=== PATIENT | male | born 1990 | race Caucasian/White ===

== ENCOUNTER 2018-01-25 21:50 | Emergency (ER) | payer OTHER ==
[~2018-01-25] VITALS: Ht 208.3 cm; Wt 99.8 kg
[~2018-01-25 21:50] MED LIST: ACETAMINOPHEN-1 EAC1 PO; IBUPROFEN 800800 M1 PO; NOHOMEMEDICATIONS; SILVADENE20 GM TP
[2018-01-25] MEDS ORDERED: NORCO 5-325 TA1 EAC1 PO (22:50)
[2018-01-25 23:17] VITALS: BP 130/80
== END 2018-01-25 23:18 | disposition home or self-care (01) ==
LOC: M.ERS 21:50
DX: S62.324A Displaced fracture of shaft of fourth metacarpal bone, right hand, initial encounter for closed fracture (principal); F17.210 Nicotine dependence, cigarettes, uncomplicated; W18.39XA Other fall on same level, initial encounter; Y93.89 Activity, other specified; Y92.89 Other specified places as the place of occurrence of the external cause; Y99.8 Other external cause status

== ENCOUNTER 2018-02-18 03:16 | Emergency (ER) | payer OTHER ==
[~2018-02-18] VITALS: Ht 195.6 cm; Wt 99.8 kg
[~2018-02-18 03:16] MED LIST changes: +NORCO 5-325 TA1 EAC1 PO
[2018-02-18] MEDS ORDERED: XANAX1 MG PO (03:28)
[2018-02-18] MEDS ORDERED: BUPRENORPHINE HC8 MG (03:29)
[2018-02-18] MEDS ORDERED: BACTRIM DS TAB1 EACH PO (03:41)
[2018-02-18] MEDS ORDERED: BACTROBAN CREAM30 G1 TOP (03:41)
[2018-02-18 04:11] VITALS: BP 106/70
== END 2018-02-18 04:16 | disposition home or self-care (01) ==
LOC: M.ERS 03:16
DX: T78.40XA Allergy, unspecified, initial encounter (principal); M79.641 Pain in right hand; X58.XXXA Exposure to other specified factors, initial encounter; Z88.8 Allergy status to other drugs, medicaments and biological substances